=== PATIENT | male | born 1940 | race Caucasian/White ===

== ENCOUNTER 2020-01-20 15:08 | Outpatient (CLI) | payer MEDICARE ==
[~2020-01-20 15:08] MED LIST: ACLI400A3 INH; ALBU18HF INH; AMLO10TA8 PO; ASCO10004 PO; ASPI-496 PO; ASPI-515 PO; ATOR40TA78 PO; AZIT250T89 PO; BIOT800T PO; BUDE10.2 INH; CALC-10 PO; CARV3.1212 PO; CETI-158 PO; CHOL200024 PO; CLOP75TA52 PO; FAMO20TA7 PO; FLAX10002 PO; FLUC200T PO; FURO20TA3 PO; GLIP5TAB10 PO; GUAI118L19 PO; IPRA3AMP30 NEB; LOSA50TA14 PO; LUTE6CAP3 PO; METF10002 PO; METH5POW16 PO; NAPR220C62 PO; OMEG1CAP23 PO; OMEP40CA42 PO; PITA2TAB2 PO; POTA10TA11 PO; PRED5TAB25 PO; SERT100T32 PO; TAMS0.4C2 PO; TURM500C7 PO; UBID30CA9 PO; [UNRECOGNIZED DRUG - CODE] PO
== END 2020-01-20 23:59 | disposition home or self-care (01) ==
LOC: RAD 15:08
PROVIDERS: ATTEND Nurse Practitioner
DX: J92.9 Pleural plaque without asbestos (principal); M47.814 Spondylosis without myelopathy or radiculopathy, thoracic region; I51.7 Cardiomegaly; Z95.0 Presence of cardiac pacemaker
CPT/HCPCS: 71046